=== PATIENT | female | born 1935 | race Caucasian/White ===

== ENCOUNTER 2016-05-29 01:33 | Emergency (ER) | payer MEDICARE ==
[~2016-05-29] VITALS: Ht 165.1 cm; Wt 69.0 kg
[~2016-05-29 01:33] MED LIST: AMLO2.5T PO; ASPI-119 PO; ATEN-102 PO; CHOLESTROL MED; CITA20 PO; FURO20 PO; GLIP5 PO; KCL20 PO; LISI-363 PO; ROSU40 PO; TRAZ50TA4 PO; XANA0.5T PO
[2016-05-29 01:34] VITALS: BP 148/73; PULSE 93; RESP 24; TEMP 97.8; O2SAT 100
[2016-05-29 01:50] VITALS: BP 141/85; PULSE 83; RESP 28; O2SAT 99
[2016-05-29] MEDS ORDERED: ASPI1TAB69 PO (01:56)
[2016-05-29] MEDS ORDERED: AMLO2.5C PO (01:56)
[2016-05-29] MEDS ORDERED: ALPR.5 PO (01:56)
[2016-05-29] MEDS ORDERED: GLIP5TAB8 PO (01:56)
[2016-05-29] MEDS ORDERED: CITA20TA4 PO (01:57)
[2016-05-29] MEDS ORDERED: LISI-515 PO (01:57)
[2016-05-29] MEDS ORDERED: ATEN50TA PO (01:57)
[2016-05-29] MEDS ORDERED: FURO20TA PO (01:57)
[2016-05-29] MEDS ORDERED: POTA-163 PO (01:58)
[2016-05-29] MEDS ORDERED: TRAZ50TA12 PO (01:58)
[2016-05-29] MEDS ORDERED: ROSU1TAB10 PO (01:58)
[2016-05-29] MEDS ORDERED: GABA300C5 PO (01:59)
[2016-05-29] MEDS ORDERED: SODIUM CHLOR 0.9% 1000 ML INJ 1,000 ML IV SCH (02:03)
[2016-05-29 02:07] VITALS: O2SAT 98
[2016-05-29] MEDS ORDERED: PROCHLORPERAZINE INJ 10 MG/2 ML VIAL IVS ONE (02:15)
[2016-05-29] MEDS ORDERED: SODIUM CHLORIDE 0.9% FLUSH 10 ML FLUSH IV FLUSH PRN (02:15)
[2016-05-29 02:27] LABS: AUTOMATED NEUTROPHIL # 20.5 TH/MM3 (1.8-7.7); BASOPHIL # 0.1 TH/MM3 (0-0.2); BASOPHIL % 0.4 % (0.0-2.0); EOSINOPHIL # 0.2 TH/MM3 (0-0.4); EOSINOPHIL % 1.1 % (0.0-4.0); HEMATOCRIT 43.3 % (35.0-46.0); HEMO FLAGS DIFF FINAL; LYMPH % 2.1 % (9.0-44.0); LYMPHOCYTE # 0.5 TH/MM3 (1.0-4.8); MEAN CELL VOLUME 86.6 FL (80.0-100.0); MEAN CORPUSCULAR HEMOGLOBIN 29.9 PG (27.0-34.0); MEAN CORPUSCULAR HGB CONC 34.6 % (32.0-36.0); MONO % 3.5 % (0.0-8.0); NEUT % 92.9 % (16.0-70.0); PLATELET COUNT 251 TH/MM3 (150-450); RED CELL DISTRIBUTION WIDTH 13.5 % (11.6-17.2)
[2016-05-29 02:35] LABS: ALKALINE PHOSPHATASE 73 U/L (45-117)
[2016-05-29 02:35] LABS: BLOOD, URINE NEG (NEG); COMMENT (UR) CULT NOT INDICATED; CULTURE IF INDICATED CULT NOT INDICATED; GLUCOSE,URINE NEG (NEG); KETONE, URINE 80 mg/dL (NEG); MUCUS URINE FEW /lpf (OCC); NITRITE,URINE NEG (NEG); URINE COLOR YELLOW (YELLW/STRAW)
--- NOTE | 2016-05-29 02:44 | PD ---
HPI Chief Complaint: Abdominal Pain Time Seen by Provider: 01:42 Travel History International Travel<30 days: No Contact w/Intl Traveler<30days: No Traveled to known affect area: No History of Present Illness HPI 80 yo F n/v/d for approx 5 hours. Onset somewhat sudden. No fever. Generalized abdominal pain reported. Emesis is yellow in color. Non-bloody stool/emesis. No CP/SOB. Total episodes vomiting approx 10 episodes. Pt denies abnormal food or contaminated/spoiled foods. No sick contacts. She reports hx DM, anxeity, HTN, HLD, and stress. PMD is Dr Scott. PFS Past Medical History Hx Anticoagulant Therapy: Yes (ASA) Autoimmune Disease: No Blood Disorders: No Anxiety: No Depression: No Heart Rhythm Problems: No Cancer: No Cardiac Catheterization: No Cardiovascular Problems: Yes (HTN) High Cholesterol: Yes Chemotherapy: No Chest Pain: No Congestive Heart Failure: No Cerebrovascular Accident: Yes Diabetes: Yes Patient Takes Glucophage: No Diminished Hearing: No Endocrine: Yes Gastrointestinal Disorders: No Genitourinary: No Headaches: Yes Hypertension: Yes Musculoskeletal: No Neurologic: No Psychiatric: No Respiratory: No Immunizations Current: Yes Migraines: Yes Myocardial Infarction: No Sickle Cell Disease: No Thyroid Disease: No Influenza Vaccination: No Past Surgical History Abdominal Surgery: Yes AICD: No Cardiac Surgery: No Coronary Artery Bypass Graft: No Ear Surgery: No Endocrine Surgery: No Eye Surgery: No Genitourinary Surgery: Yes (BLADDER REPAIR) Gynecologic Surgery: Yes Hysterectomy: Yes Neurologic Surgery: No Oral Surgery: No Pacemaker: No Thoracic Surgery: No Other Surgery: Yes (BREAST AUGMENTATION) Social History Alcohol Use: No Tobacco Use: No Substance Use: No Allergies-Medications (Allergen,Severity, Reaction): Coded Allergies: No Known Allergies (Verified , 05/29/16) Reported Meds & Prescriptions Reported Meds & Active Scripts Active Phenergan (Promethazine HCl) 25 Mg Tab 25 Mg PO Q6H PRN Reported Gabapentin 300 Mg Cap 300 Mg PO BID Trazodone (Trazodone HCl) 50 Mg Tab 50 Mg PO HS Rosuvastatin (Rosuvastatin Calcium) 40 Mg Tab 40 Mg PO DAILY Potassium Chloride ER (Potassium Chloride) 20 Meq Tab 20 Meq PO DAILY Lisinopril 20 Mg Tab 20 Mg PO DAILY Furosemide 20 Mg Tab 20 Mg PO DAILY Citalopram (Citalopram Hydrobromide) 20 Mg Tab 20 Mg PO DAILY Atenolol 50 Mg Tab 50 Mg PO BID Aspirin 81 Mg Tabdr 81 Mg PO DAILY Glipizide 5 Mg Tab 5 Mg PO DAILY Take 30 minutes before a meal Amlodipine-Benazepril 2.5-10 Mg Cap 1 Cap PO DAILY Xanax (Alprazolam) 0.5 Mg Tab 0.5 Mg PO Q6H PRN [Cholestrol Med] Review of Systems Except as stated in HPI: all other systems reviewed are Neg Physical Exam Narrative GENERAL: 80 yo F, WNWD, mild distress 2/2 nausea and/or anxiety SKIN: Warm and dry. HEAD: Atraumatic. Normocephalic. EYES: Pupils equal and round. No scleral icterus. No injection or drainage. ENT: No nasal bleeding or discharge. Mucous membranes pink and moist. NECK: Trachea midline. No JVD. CARDIOVASCULAR: Regular rate and rhythm. RESPIRATORY: Tachypnea. Lungs clear. GASTROINTESTINAL: Abdomen soft, non-tender, nondistended. Hepatic and splenic margins not palpable. MUSCULOSKELETAL: Extremities without clubbing, cyanosis, or edema. No obvious deformities. NEUROLOGICAL: Awake and alert. No obvious cranial nerve deficits. Motor grossly within normal limits. Five out of 5 muscle strength in the arms and legs. Normal speech. PSYCHIATRIC: Appropriate mood and affect; insight and judgment normal. Data Data Last Documented VS Vital Signs Date Time Temp Pulse Resp B/P Pulse Ox O2 Delivery O2 Flow Rate FiO2 05/29/16 02:07 98 Room Air 05/29/16 01:50 83 28 141/85 05/29/16 01:34 97.8 VS reviewed Orders Complete Blood Count With Diff (05/29/16 02:03) Comprehensive Metabolic Panel (05/29/16 02:03) Urinalysis - C+S If Indicated (05/29/16 02:03) Iv Access Insert/Monitor (05/29/16 02:03) Ecg Monitoring (05/29/16 02:03) Oximetry (05/29/16 02:03) Sodium Chlor 0.9% 1000 Ml Inj (Ns 1000 M (05/29/16 02:03) Sodium Chloride 0.9% Flush (Ns Flush) (05/29/16 02:15) Prochlorperazine Inj (Compazine Inj) (05/29/16 02:15) Morphine Inj (Morphine Inj) (05/29/16 03:15) Al-Mag Hy-Si 40-40-4 Mg/Ml Liq (Mag-Al P (05/29/16 03:15) Lidocaine 2% Viscous (Xylocaine 2% Visco (05/29/16 03:15) Ondansetron Odt (Zofran Odt) (05/29/16 04:30) Labs Laboratory Tests Test 05/29/16 05/29/16 02:05 02:15 White Blood Count 22.0 TH/MM3 Red Blood Count 5.00 MIL/MM3 Hemoglobin 15.0 GM/DL Hematocrit 43.3 % Mean Corpuscular Volume 86.6 FL Mean Corpuscular Hemoglobin 29.9 PG Mean Corpuscular Hemoglobin 34.6 % Concent Red Cell Distribution Width 13.5 % Platelet Count 251 TH/MM3 Mean Platelet Volume 9.6 FL Neutrophils (%) (Auto) 92.9 % Lymphocytes (%) (Auto) 2.1 % Monocytes (%) (Auto) 3.5 % Eosinophils (%) (Auto) 1.1 % Basophils (%) (Auto) 0.4 % Neutrophils # (Auto) 20.5 TH/MM3 Lymphocytes # (Auto) 0.5 TH/MM3 Monocytes # (Auto) 0.8 TH/MM3 Eosinophils # (Auto) 0.2 TH/MM3 Basophils # (Auto) 0.1 TH/MM3 CBC Comment DIFF FINAL Differential Comment Sodium Level 139 MEQ/L Potassium Level 4.2 MEQ/L Chloride Level 100 MEQ/L Carbon Dioxide Level 24.0 MEQ/L Anion Gap 15 MEQ/L Blood Urea Nitrogen 25 MG/DL Creatinine 1.41 MG/DL Estimat Glomerular Filtration 36 ML/MIN Rate Random Glucose 218 MG/DL Calcium Level 9.7 MG/DL Total Bilirubin 1.0 MG/DL Aspartate Amino Transf 24 U/L (AST/SGOT) Alanine Aminotransferase 19 U/L (ALT/SGPT) Alkaline Phosphatase 73 U/L Total Protein 8.1 GM/DL Albumin 4.8 GM/DL Urine Color YELLOW Urine Turbidity CLEAR Urine pH 8.0 Urine Specific [place] 1.018 Urine Protein 30 mg/dL Urine Glucose (UA) NEG mg/dL Urine Ketones 80 mg/dL Urine Occult Blood NEG Urine Nitrite NEG Urine Bilirubin NEG Urine Urobilinogen LESS THAN 2.0 MG/DL Urine Leukocyte Esterase NEG Urine RBC LESS THAN 1 /hpf Urine WBC LESS THAN 1 /hpf Urine Mucus FEW /lpf Microscopic Urinalysis Comment CULT NOT INDICATED MDM Medical Decision Making Medical Screen Exam Complete: Yes Emergency Medical Condition: Yes Medical Record Reviewed: Yes Differential Diagnosis Constipation, Gastritis, Acute Cholecystitis, Biliary Colic, Pancreatitis, PITTS , Hepatitis, Bowel Obstruction, Cystitis, Mesenteric Ischemia, AAA, Appendicitis , Renal Stone/Hydronephrosis, GERD, perforated viscous Narrative Course CBC & BMP Diagram 05/29/16 02:05 LFTs normal Urinalysis reveals mild ketonuria with no UTI Marked leukocytosis was observe 08/09/2012 when pt was diagnosed with gastroenteritis, similar to today's presentation. Patient received Compazine and a few 100 cc's of normal saline. She states Lasix however is unsure why. Her myocardial perfusion scan from about 7 months prior reveals an ejection fraction of 68%. She has tolerated oral hydration here. The abdomen is soft and nontender. The vital signs are normal. We will discharge the patient with Phenergan. Diagnosis Primary Impression: Nausea vomiting and diarrhea Referrals: DR SCOTT 2 days Additional Instructions: You have a choice when it comes to health care, and we are glad that you chose [facility]. Hopefully, we have met your expectations on today's visit. You are welcome to return to [facility] at any time, as we are committed to meeting the health care needs of our community. Med/Other Pt SpecificInfo: Prescription(s) given Scripts Promethazine (Phenergan)25 Mg Tab25 Mg PO Q6H PRN (Nausea/Vomiting) #15 TAB Ref 0 Prov:Kobi Kinney MD 05/29/16 Disposition: 01 DISCHARGE HOME Condition: Stable Kobi Kinney MD May 29, 2016 02:44
[2016-05-29 02:45] LABS: ALT (GPT) 19 U/L (10-53); ANION GAP 15 MEQ/L (5-15); AST (GOT) 24 U/L (15-37); BLOOD UREA NITROGEN 25 MG/DL (7-18); CHLORIDE 100 MEQ/L (98-107); GLOMERULAR FILTRATION RATE 36 ML/MIN (>89); SODIUM (NA) 139 MEQ/L (136-145)
[2016-05-29 02:46] LABS: POTASSIUM 4.2 MEQ/L (3.5-5.1)
[2016-05-29] MEDS ORDERED: MORPHINE SULFATE 4 MG/ML INJ IV PUSH ONE (03:15)
[2016-05-29] MEDS ORDERED: ALUMINUM/MAGNESIUM/SIMETH 30 ML CUP PO ONE (03:15)
[2016-05-29] MEDS ORDERED: LIDOCAINE VISCOUS 2% SOLN 15 ML UDC PO ONE (03:15)
[2016-05-29] MEDS ORDERED: ZOFR4TAB3 SL (03:35)
[2016-05-29] MEDS ORDERED: PROM25TA5 PO (04:25)
[2016-05-29] MEDS ORDERED: ONDANSETRON ODT 4 MG TAB PO ONE (04:30)
--- NOTE | 2016-05-29 09:22 | EKG ---
Date Performed: 05/29/2016 Time Performed: 01:50:30 PTAGE: 80 years EKG: Sinus rhythm NORMAL ECG PREVIOUS TRACING : 10/20/2015 02.59 DOCTOR: Prasanna Dsouza Interpretating Date/Time 05/29/2016 09:21:29
== END 2016-05-29 04:34 | disposition home or self-care (01) ==
LOC: NEPC 01:33
DX: R11.2 Nausea with vomiting, unspecified (principal); R19.7 Diarrhea, unspecified; I10 Essential (primary) hypertension; E11.9 Type 2 diabetes mellitus without complications; Z79.82 Long term (current) use of aspirin; Z79.84 Long term (current) use of oral hypoglycemic drugs
CPT/HCPCS: 80053; 81001; 85025; 93005; 96361; 96374; 96375; 99284; J0780; J2270; J7030